=== PATIENT | male | born 1970 ===

== ENCOUNTER 2018-03-12 08:58 | Emergency (ER) | payer MEDICAID, OTHER ==
[2018-03-12 09:09] VITALS: RESP 18; TEMP 98.7
--- NOTE | 2018-03-12 09:28 | C.PDOC ---
History Of Present Illness Patient is a 47 y/o male presenting with L knee pain. Patient reports that 4 days ago he fell off a skateboard and fell onto his L knee. He reports that he has had persistent pain so he presented to the ED. Denies head trauma. Denies other injury. Reports he is having difficulty ambulating but can ambulate somewhat with a limp. Time Seen by Provider: 03/12/18 09:09 Chief Complaint (Nursing): Lower Extremity Problem/Injury History Per: Patient History/Exam Limitations: no limitations Onset/Duration Of Symptoms: Days Current Symptoms Are (Timing): Still Present Past Medical History Reviewed: Historical Data, Nursing Documentation, Vital Signs Vital Signs: Last Vital Signs Temp 98.7 F 03/12/18 09:03 Pulse 64 03/12/18 09:03 Resp 18 03/12/18 09:03 BP 150/92 H 03/12/18 09:03 Pulse Ox 99 03/12/18 09:03 - Medical History PMH: No Chronic Diseases Family History: States: Unknown Family Hx - Social History Hx Alcohol Use: No Hx Substance Use: No - Immunization History Hx Tetanus Toxoid Vaccination: No Hx Influenza Vaccination: No Hx Pneumococcal Vaccination: No Review Of Systems Constitutional: Negative for: Fever, Chills Cardiovascular: Negative for: Chest Pain, Palpitations, Edema Respiratory: Negative for: Cough, Shortness of Breath, SOB with Excertion, Wheezing Gastrointestinal: Negative for: Nausea, Vomiting, Abdominal Pain, Diarrhea, Constipation Musculoskeletal: Positive for: Other (left knee pain). Negative for: Neck Pain, Shoulder Pain, Arm Pain, Back Pain, Hand Pain, Leg Pain, Foot Pain Neurological: Negative for: Weakness, Numbness, Change in Speech, Headache Physical Exam - Physical Exam Appears: Well, Non-toxic, No Acute Distress Skin: Normal Color, Warm, Dry Head: Atraumatic, Normacephalic Eye(s): bilateral: Normal Inspection, PERRL, EOMI Neck: Supple Back: Normal Inspection, No Vertebral Tenderness, No Paraspinal Tenderness Extremity: Normal ROM, Swelling (L knee), Other (patellar tenderness, pain with full extension, no tenderness to hip, ankle or foot) Pulses: Left Dorsalis Pedis: Normal Neurological/Psych: Oriented x3, Normal Speech, Normal Cranial Nerves, Normal Motor Gait: Steady ED Course And Treatment O2 Sat by Pulse Oximetry: 99 (RA) Pulse Ox Interpretation: Normal - Other Rad Knee X-ray X-Ray: Viewed By Me, Read By Radiologist Interpretation: FINDINGS: BONES: Comminuted patella fracture. JOINTS: No dislocation. JOINT EFFUSION: Suprapatellar joint effusion. OTHER FINDINGS: Soft tissue swelling. No evidence of radiopaque foreign body. IMPRESSION: Comminuted patellar fracture with soft tissue swelling and suprapatellar joint effusion. Medical Decision Making Medical Decision Making: Plan: -CT LT Knee w/o contrast -Xray LT Knee -Motrin Progress/Update: Spoke to Dr. Hope who is requesting CT and then discharge with knee immobilizer and follow-up in his office Patient placed in knee immobilizer, given crutches and was given crutch training by PT Disposition - Disposition Referrals: Perez Jordan III, MD [Staff Provider] - Disposition: HOME/ ROUTINE Disposition Time: 10:12 Condition: GOOD Additional Instructions: Follow-up with Dr. Hope. Return to ED if condition worsens. Keep knee in immobilizer. percocet for severe pain. motrin for mild pain Prescriptions: oxyCODONE/Acetaminophen [Percocet 5/325 mg Tab] 1 ea PO Q6 PRN #10 tab PRN Reason: Pain, Severe (8-10) Instructions: Patella Fracture Forms: [facility] (Bengali) - Clinical Impression Clinical Impression: Patellar fracture - Scribe Statement The provider has reviewed the documentation as recorded by the Scribe (Nila Diez) Provider Attestation: All medical record entries made by the Scribe were at my direction and personally dictated by me. I have reviewed the chart and agree that the record accurately reflects my personal performance of the history, physical exam, medical decision making, and the department course for this patient. I have also personally directed, reviewed, and agree with the discharge instructions and disposition.
--- NOTE | 2018-03-12 11:34 | RAD ---
PROCEDURE: Left Knee Radiographs. HISTORY: Knee pain COMPARISON: No prior. FINDINGS: BONES: Comminuted patella fracture. JOINTS: No dislocation. JOINT EFFUSION: Suprapatellar joint effusion. OTHER FINDINGS: Soft tissue swelling. No evidence of radiopaque foreign body. IMPRESSION: Comminuted patellar fracture with soft tissue swelling and suprapatellar joint effusion.
[2018-03-12 12:38] VITALS: BP 145/90; PULSE 75
[2018-03-12 12:49] VITALS: O2SAT 99
--- NOTE | 2018-03-12 15:42 | CT ---
CT left knee HISTORY: Patellar fracture. COMPARISON: 03/12/2018 TECHNIQUE: Multiple contiguous axial images were performed through the left knee without the use of intravenous contrast. Subsequently, sagittal and coronal reformatted images were obtained. This CT exam was performed using one or more of the following dose reduction techniques: Automated exposure control, adjustment of the mA and/or kV according to patient size, and/or use of iterative reconstruction technique. Findings: Fracture deformity of the patella with multiple transverse oblique lucencies extending from the anterior cortex extending posteriorly to the level of the patellar apex as well as the medial and lateral patellar facets in a predominantly oblique orientation. Small suprapatellar joint effusion. Few scattered bone islands in the distal femur, proximal tibia, and proximal fibula. Reticulation and edema within the prepatellar soft tissues. Impression: 1. Fracture deformity of the patella with multiple transverse oblique lucencies extending from the anterior cortex extending posteriorly to the level of the patellar apex as well as the medial and lateral patellar facets in a predominantly oblique orientation. 2. Small suprapatellar joint effusion. 3. Few scattered bone islands in the distal femur, proximal tibia, and proximal fibula. 4. Reticulation and edema within the prepatellar soft tissues. Correlation with MRI may be helpful if clinically indicated.
== END 2018-03-12 12:38 | disposition home or self-care (01) ==
LOC: C.ER 08:58
DX: S82.042A Displaced comminuted fracture of left patella, initial encounter for closed fracture (principal); V00.131A Fall from skateboard, initial encounter; Y93.51 Activity, roller skating (inline) and skateboarding
CPT/HCPCS: 73562; 73700; 97116; 97161; 99285; G8978; G8979; G8980

== ENCOUNTER 2018-07-30 11:29 | Emergency (ER) | payer OTHER ==
[2018-07-30 11:35] VITALS: BP 150/89; PULSE 69; RESP 18; TEMP 97.8; O2SAT 98
[2018-07-30] MEDS ORDERED: Tetracaine 0.5% Ophth (OR ONLY) OD ONE (12:05)
[2018-07-30] MEDS ORDERED: Fluorescein 1 mg Ophthalmic Strip OD ONE (12:05)
[2018-07-30] MEDS ORDERED: Tetracaine 0.5% Ophth (OR ONLY) ONE (12:17)
[2018-07-30] MEDS ORDERED: Fluorescein 1 mg Ophthalmic Strip ONE (12:17)
--- NOTE | 2018-07-30 12:28 | C.PDOC ---
History Of Present Illness 47 y/o male presents to the ED complaining of right eye redness and pain for 1 week. States he had similar symptoms in the left eye before, which resolved spontaneously. Otherwise he denies any visual changes, fever, headache, dizziness, or rash. Denies trauma to the eye. Time Seen by Provider: 07/30/18 11:36 Chief Complaint (Nursing): Eye Problem History Per: Patient History/Exam Limitations: no limitations Onset/Duration Of Symptoms: Days Current Symptoms Are (Timing): Still Present Injury To Eye?: No Associated Symptoms: Pain Past Medical History Reviewed: Historical Data, Nursing Documentation, Vital Signs Vital Signs: Last Vital Signs Temp 97.8 F 07/30/18 11:33 Pulse 69 07/30/18 11:33 Resp 18 07/30/18 11:33 BP 150/89 07/30/18 11:33 Pulse Ox 98 07/30/18 11:33 - Medical History PMH: No Chronic Diseases Surgical History: No Surg Hx Family History: States: Unknown Family Hx - Social History Hx Tobacco Use: No Hx Alcohol Use: Yes Hx Substance Use: No - Immunization History Hx Tetanus Toxoid Vaccination: No Hx Influenza Vaccination: No Hx Pneumococcal Vaccination: No Review Of Systems Constitutional: Negative for: Fever, Chills Eyes: Positive for: Pain, Redness. Negative for: Vision Change Gastrointestinal: Negative for: Nausea, Vomiting Musculoskeletal: Negative for: Neck Pain Skin: Negative for: Rash Neurological: Negative for: Headache, Dizziness Physical Exam - Physical Exam Appears: Non-toxic, No Acute Distress, Other (Appears comfortable) Skin: Warm, Dry, No Rash (surrounding the right eye) Head: Atraumatic, Normacephalic Eye(s): bilateral: PERRL, EOMI, right: Other (scleral injection at the lateral aspect of right eye, No foreign body visualized, No discharge), left: Normal Inspection Oral Mucosa: Moist Neck: Normal ROM Chest: Symmetrical Respiratory: No Accessory Muscle Use Extremity: Bilateral: Normal Color And Temperature, Normal ROM Pulses: Left Radial: Normal, Right Radial: Normal Neurological/Psych: Oriented x3, Normal Speech Additional Physical Exam Comments: Right eye examined using Tetracaine and fluorescein drops: No uptake or abrasion noted. ED Course And Treatment O2 Sat by Pulse Oximetry: 98 (RA) Pulse Ox Interpretation: Normal Progress Note: There is no fluorescein uptake on exam. Patient will be discharged home with rx for Tobradex drops. Advised to follow up with ophthalmology for further evaluation. Disposition - Disposition Referrals: Carmelo Pritchard MD [Staff Provider] - Disposition: HOME/ ROUTINE Disposition Time: 12:30 Condition: STABLE Additional Instructions: FOLLOW UP WITH EYE DOCTOR IN 1-2 DAYS USE MEDICATIONS DIRECTED RETURN TO ER IF SYMPTOMS WORSEN Prescriptions: Dexamethasone/Tobramycin [Tobradex 0.1%-0.3% 2.5 Ml] 1 drop OP Q6 #1 bottle Forms: [employer] (Danish), General Discharge Instructions Print Language: SLOVAK - Clinical Impression Clinical Impression: Scleritis of right eye - Scribe Statement The provider has reviewed the documentation as recorded by the Shaina Broussard Provider Attestation: All medical record entries made by the Shaina were at my direction and personally dictated by me. I have reviewed the chart and agree that the record accurately reflects my personal performance of the history, physical exam, medical decision making, and the department course for this patient. I have also personally directed, reviewed, and agree with the discharge instructions and disposition.
== END 2018-07-30 12:57 | disposition home or self-care (01) ==
LOC: C.ER 11:29
DX: H15.001 Unspecified scleritis, right eye (principal)